=== PATIENT | female | born 1970 | race Caucasian/White ===

== ENCOUNTER 2018-06-01 17:50 | Emergency (ER) | payer BC ==
--- NOTE | 2018-06-02 08:58 | RAD ---
2 VIEWS CHEST: Date: 06/01/18 HISTORY: Cough. FINDINGS: Comparison made to previous exam from 08/20/13. Two views of the chest demonstrate the lungs to be well aerated. No evidence of active intrathoracic disease seen. No evidence of effusions, pneumonia, or pneumothorax seen. IMPRESSION: Normal 2 views chest. POS: [facility]
== END 2018-06-01 19:20 | disposition home or self-care (01) ==
LOC: SCSER 17:50
DX: J40 Bronchitis, not specified as acute or chronic (principal); J06.9 Acute upper respiratory infection, unspecified; E10.9 Type 1 diabetes mellitus without complications; E78.5 Hyperlipidemia, unspecified; I10 Essential (primary) hypertension; F41.9 Anxiety disorder, unspecified; Z79.84 Long term (current) use of oral hypoglycemic drugs; Z79.899 Other long term (current) drug therapy
CPT/HCPCS: 71046

== ENCOUNTER 2018-09-26 10:24 | Outpatient (CLI) | payer BC | END 2018-09-26 10:25 | disposition home or self-care (01) | LOC: BICMAMMO 10:24 | PROVIDERS: ATTEND Family Medicine | DX: Z12.31 Encounter for screening mammogram for malignant neoplasm of breast (principal) | CPT/HCPCS: 77063; 77067 ==

== ENCOUNTER 2018-11-13 17:51 | Emergency (ER) | payer BC ==
[~2018-11-13 17:51] MED LIST: Iopamidol 370 76% 100 ML VIAL ONE
[2018-11-13] MEDS ORDERED: Dicyclomine 20 MG TAB ONE (19:17)
[2018-11-13] MEDS ORDERED: Famotidine/PF 20 mg/2ml Vial ONE (19:17)
[2018-11-13 19:19] LABS: ALT (SGPT) 20 U/L (8-55); AST (SGOT) 14 U/L (5-34); Albumin 3.7 g/dL (3.5-5.0); Alkaline Phosphatase 144 U/L (40-150); Anion Gap 16 mmol/L (10-20); BUN (Urea Nitrogen) 8 mg/dL (7.0-18.7); Bilirubin, Total 0.2 mg/dL (0.2-1.2); Calc. Creatinine Clearance 0 mL/min (70-130); Calcium 8.8 mg/dL (7.8-10.44); Carbon Dioxide 23 mmol/L (22-29); Chloride 104 mmol/L (98-107); Estimated GFR-MDRD Greater than 90; Globulin 2.8 g/dL (2.4-3.5); Glucose 164 mg/dL (70-105); Lipase 19 U/L (8-78); Potassium 4.1 mmol/L (3.5-5.1); Protein, Total 6.5 g/dL (6.0-8.3); Sodium 139 mmol/L (136-145)
[2018-11-13 19:24] LABS: Band 2 % (5-11); Eosinophils 2 % (0-10); Hemoglobin 12.8 g/dL (12.0-16.0); Lymphocytes 16 % (21-51); MDiff Complete? YES; Mean Corpuscular HGB CONC 31.7 g/dL (32.0-36.0); Mean Corpuscular Volume 82.1 fL (78.0-98.0); Mean Platelet Volume 7.6 fL (7.4-10.4); Monocytes 6 % (0-10); Neutrophil 73 % (42-75); PLT Morphology Comment Appears Adequate; Platelet Count 255 thou/uL (130-400); RBC Distribution Width 12.2 % (11.5-14.5); Reactive Lymphocytes 1 % (0-10); White Blood Cell (WBC) Count 13.6 thou/uL (4.8-10.8)
[2018-11-13 19:59] LABS: INR-International Normal Ratio 0.9; PTT 27.6 SEC (22.9-36.1); Prothrombin Time 11.9 SEC (12.0-14.7)
[2018-11-13] MEDS ORDERED: Pantoprazole 40 MG VIAL ONE (20:11)
[2018-11-13 20:44] LABS: Bilirubin Negative (Negative); Blood, Urine Negative (Negative); Clarity Clear (Clear); Glucose, Urine (Dipstick) Negative (Negative); Leukocyte Negative (Negative); Nitrite Negative (Negative); Protein, Urine (Dipstick) Negative (Neg-Trace); Urobilinogen 0.2 mg/dL (0.2-1.0)
--- NOTE | 2018-11-13 21:02 | CT ---
CT ABDOMEN AND PELVIS WITH CONTRAST 11/13/18 HISTORY: Abdominal pain for three months. Fecal occult blood positive. TECHNIQUE: Multiple contiguous axial images were obtained in a CT of the abdomen and pelvis with contrast. Coron al reformats were performed. FINDINGS: A small hypodensity in the liver likely represents a small cyst. There is a nonobstructing calcificat ion in the left kidney measuring 7 mm in greatest dimension. The gallbladder, right kidney, adrenal g lands, spleen, and pancreas are unremarkable. No free air, free fluid, or stranding changes are seen in the abdomen or pelvis. There are a few scattered diverticula in the colon. The small bowel is unremarkable. The appendix is normal. No abdominal or pelvic lymphadenopathy are seen. The patient is status post hysterectomy. The osseous structures, visualized upper thorax, and abdominal wall soft tissues are unremarkable. IMPRESSION: 1. Nonobstructing left renal calcification. 2. Hepatic cyst. 3. Diverticulosis. POS: [facility]
== END 2018-11-13 21:24 | disposition home or self-care (01) ==
LOC: SCSER 17:51
DX: R10.13 Epigastric pain (principal); R19.5 Other fecal abnormalities; E10.9 Type 1 diabetes mellitus without complications; E78.5 Hyperlipidemia, unspecified; I10 Essential (primary) hypertension; F41.9 Anxiety disorder, unspecified; Z79.899 Other long term (current) drug therapy
CPT/HCPCS: 74177; 80053; 81003; 82274; 83605; 83690; 85025; 85610; 85730; 96361; 96374; 96375; C9113; S0028

== ENCOUNTER 2019-01-28 06:05 | Day surgery (SDC) | payer BC ==
[2019-01-27 13:09] VITALS: BMI 45.3
[2019-01-28] MEDS ORDERED: Fentanyl 100 MCG/2 ML VIAL ONE (06:30)
[2019-01-28] MEDS ORDERED: Lidocaine 2% Jelly 5 ML TUBE ONE (06:31)
[2019-01-28] MEDS ORDERED: Iothalamate Meglumine 60% 50 ML VIAL FS ONE (06:39)
[2019-01-28] MEDS ORDERED: cefTRIAXone\\ROCEPHIN 1 GM in Sodium Chloride 0.9% 100 ML IVPB SCH (08:00)
--- NOTE | 2019-01-28 09:03 | RAD ---
CHEST ONE VIEW: HISTORY: Preoperative evaluation. COMPARISON: 06/01/2018 FINDINGS: No confluent pneumonia, overt edema, or pleural effusion. IMPRESSION: No acute intrathoracic disease. Stable from prior study. POS: [facility]
[2019-01-28] MEDS ORDERED: HYDROcodone/Acetaminophen 5/325 mg Tablet ONE (09:19)
[2019-01-28] MEDS ORDERED: Morphine 2 MG/ML SYRINGE ONE (10:13)
[2019-01-28] MEDS ORDERED: B & O ONE (10:23)
[2019-01-28] MEDS ORDERED: Hyoscyamine Sulfate SL 0.125 mg Tablet SL SCH (10:45)
[2019-01-28] MEDS ORDERED: Hyoscyamine Sulfate SL 0.125 mg Tablet ONE (11:01)
[2019-01-28] MEDS ORDERED: PROPOFOL 200 MG/20 ML VIAL ONE (11:53)
[2019-01-28] MEDS ORDERED: Ketorolac Tromethamine 30 MG/ML VIAL ONE (11:53)
[2019-01-28] MEDS ORDERED: Lidocaine 1% PF 5 ML VIAL ONE (11:53)
[2019-01-28] MEDS ORDERED: Rocuronium Bromide 10 MG/ML (10ML VIAL) ONE (11:53)
[2019-01-28] MEDS ORDERED: Ondansetron PF 4 MG/2 ML Vial ONE (11:53)
[2019-01-28] MEDS ORDERED: Glycopyrrolate 0.2 MG/ML 5 ML SYRINGE ONE (11:53)
--- NOTE | 2019-01-28 14:25 | OP ---
DATE OF PROCEDURE: 01/28/2019 SERVICE: Urology. PREOPERATIVE DIAGNOSIS: Left ureteral and renal stone. POSTOPERATIVE DIAGNOSIS: Left ureteral and renal stone. PROCEDURES PERFORMED: Cystoscopy and left ureteral stent placement. INDICATION FOR PROCEDURE: Ms. Hebert is a 48-year-old white female, who presented on Sunday with left flank pain and hematuria. She was diagnosed with a left ureteral stone and renal stone both under 5 mm. Her pain has been poorly controlled and she is requiring large amounts of narcotics. Therefore, we have decided to go for a ureteral stent placement rather than attempted medical expulsive therapy. Risks and benefits of the surgery had been discussed, and she has agreed to proceed forward. DESCRIPTION OF PROCEDURE: After identification of armband and verification of consent, the patient was brought back to the operating room. She underwent general anesthesia with endotracheal intubation. She was then placed in dorsal lithotomy position, and prepped and draped in usual sterile fashion. After appropriate time-out, a lubricated 22-Chinese rigid cystoscope was introduced per urethra into the bladder and attention was turned to the left ureteral orifice. There was bloody efflux coming from this ureter. A 0.035 Sensor wire was advanced through the ureteral orifice up to the level of renal pelvis. A 6 x 26 double-J stent was advanced over the Sensor wire up to the level of renal pelvis, and the wire removed leaving a partial curl in the kidney and a good curl in the bladder. The bladder was then emptied, and the cystoscope was removed. The patient was then awakened, taken to PACU for recovery in stable condition. COMPLICATIONS: None. ESTIMATED BLOOD LOSS: Minimal. RETAINED TUBES AND DRAINS: A 6 x 26 double-J stent on the left. SPECIMENS: None. DISPOSITION: The patient will be discharged home and follow up with me in approximately a week for a definitive ureteroscopy to remove both stones. Job ID: [id number]
--- NOTE | 2019-01-28 18:17 | EKG ---
Test Reason : PREOP Blood Pressure : / mmHG Vent. Rate : 089 BPM Atrial Rate : 089 BPM P-R Int : 140 ms QRS Dur : 090 ms QT Int : 398 ms P-R-T Axes : 055 077 037 degrees QTc Int : 484 ms Normal sinus rhythm Prolonged QT Abnormal ECG No previous ECGs available Confirmed by DR. Esau ESPINOZA ([id number]) on 01/28/2019 6:16:46 PM Referred By: SANYA Confirmed By:DR. Esau ESPINOZA
== END 2019-01-28 12:15 | disposition home or self-care (01) ==
LOC: SDC 06:05
PROVIDERS: ATTEND Urology
PROC: 0T778DZ Dilation of Left Ureter with Intraluminal Device, Via Natural or Artificial Opening Endoscopic (ICD-10-PCS; principal; 2019-01-28)
DX: N20.2 Calculus of kidney with calculus of ureter (principal); E11.9 Type 2 diabetes mellitus without complications; I10 Essential (primary) hypertension; E78.5 Hyperlipidemia, unspecified; F41.9 Anxiety disorder, unspecified; Z79.4 Long term (current) use of insulin; Z79.899 Other long term (current) drug therapy; Z88.2 Allergy status to sulfonamides; Z88.8 Allergy status to other drugs, medicaments and biological substances
CPT/HCPCS: 36416; 71045; 74420; 93005; 93010; C1758; C1769; J0696; J1885; J2001; J2270; J2405; J2704; J3010; J7050; Q9961

== ENCOUNTER 2019-02-07 07:42 | Inpatient (IN) | payer BC ==
[2019-02-07] MEDS ORDERED: Midazolam HCl 2 mg/2 ml Vial ONE (09:40)
[2019-02-07] MEDS ORDERED: cefTRIAXone\\ROCEPHIN 1 GM VIAL ONE (09:40)
[2019-02-07] MEDS ORDERED: Sodium Chloride 0.9% 100 ML ONE (09:41)
[2019-02-07] MEDS ORDERED: Fentanyl 100 MCG/2 ML VIAL ONE ×3 (10:18→12:06)
[2019-02-07] MEDS ORDERED: B & O ONE (11:16)
[2019-02-07] MEDS ORDERED: Phenazopyridine HCl 97.5 MG TABLET ONE ×2 (11:55)
--- NOTE | 2019-02-07 12:17 | OP ---
DATE OF PROCEDURE: 02/07/2019 PREOPERATIVE DIAGNOSIS: Left renal stone. POSTOPERATIVE DIAGNOSIS: Left renal stone. PROCEDURES PERFORMED: Left ureteroscopy, laser lithotripsy, basket extraction of stone, and placement of a 4.8 x 24 double-J stent. INDICATION FOR PROCEDURE: Ms. Hebert is a 48-year-old white female, who initially had presented to me with severe left flank pain. She was found to have a proximal left UPJ stone. She underwent urgent stenting at that time, but had such bad pain from the stent that we ended up having to remove the stent two days later. She decided to deal with the pain from the stone itself, which she stated it was tolerable. She is now presenting for definitive management of her left stone. Risks and benefits of the surgery have been discussed and she has agreed to proceed forward. DESCRIPTION OF PROCEDURE: After identification of armband and verification of consent, the patient was brought back to the operating room, where she underwent general anesthesia with endotracheal intubation. She was then placed in dorsal lithotomy position and prepped and draped in usual sterile fashion. After appropriate time-out, a lubricated 22-Dutch rigid cystoscope was introduced per urethra into the bladder. Attention was turned toward the left ureteral orifice, which showed significant irritation from the prior stent. The ureteral orifice was cannulated with a 0.035 Sensor wire up to the level of renal pelvis. The cystoscope was then removed and a dual-lumen catheter was advanced over the Sensor wire up to the level of the proximal ureter. An Amplatz Super Stiff wire was then placed through the second lumen of the dual lumen into the renal pelvis and the dual-lumen removed. The Sensor wire was then affixed to the drapes as a safety wire and 11/13 x 36 cm ureteral access sheath was then advanced over the Super Stiff wire into the distal ureter and up to the proximal ureter. There the inner sheath were removed leaving the outer sheath and placed as a safety wire. A flexible digital ureteroscope was then passed through the ureteral access sheath into the renal pelvis, where the stone was immediately encountered at the UPJ. All the calyces were inspected. No additional stones were found. There was previously report of a 3.7 mm stone additionally in the renal collecting system on the left side, but this was not encountered. It is possible that she has already passed the stone with the larger 5 to 6 mm stone was present within the renal pelvis. Using a 365 micron laser fiber, the stone was cut in half and each fragment was removed using a 1.9-Dutch ZeroTip Nitinol basket. Upon completion, there were no stone fragments or any other stone pieces within the kidney. A repeat pyelocalicoscopy was done to ensure that there was no additional stone fragments or missed stones within any of the calyces or renal pelvis and nothing else was encountered. Pull-back ureteroscopy was employed and there was no additional stones within the ureter. The ureteroscope was then withdrawn and along with the sheath, and the cystoscope was then backloaded over the Sensor wire back into the bladder. A 4.8-Dutch x 24 cm double-J stent was advanced over the Sensor wire up to the level of renal pelvis with a string attached. The wire was removed leaving a partial curl in the kidney and a good curl in the bladder. The bladder was then drained and cystoscope removed. The string was then affixed to the patient's inner thigh with Tegaderm. B and O suppository was placed in the patient's rectum. She was then awakened and taken to PACU for recovery in stable condition. COMPLICATIONS: None. ESTIMATED BLOOD LOSS: Minimal. RETAINED TUBES AND DRAINS: A 4.8-Dutch x 24 double-J stent on the left. SPECIMEN: Stone for stone analysis. DISPOSITION: The patient will be monitored for postoperative pain. She stated that she does not want to have her stent removed early due to potential risk of complications such as ureteral stricturing. As such, she stated if her pain is intolerable, she would rather be admitted for pain control and keep the stent in, but if her pain is controlled, we will send her home with instructions to remove her stent on Sunday. Job ID: [id number]
[2019-02-07] MEDS ORDERED: Ondansetron PF 4 MG/2 ML Vial ONE (12:38)
[2019-02-07] MEDS ORDERED: Ketorolac Tromethamine 30 MG/ML VIAL ONE (12:38)
[2019-02-07] MEDS ORDERED: Glycopyrrolate 0.2 MG/ML 5 ML SYRINGE ONE (12:38)
[2019-02-07] MEDS ORDERED: Lidocaine 1% PF 5 ML VIAL ONE (12:38)
[2019-02-07] MEDS ORDERED: PROPOFOL 200 MG/20 ML VIAL ONE (12:38)
[2019-02-07] MEDS ORDERED: Rocuronium Bromide 10 MG/ML (10ML VIAL) ONE (12:38)
[2019-02-07] MEDS ORDERED: Morphine 2 MG/ML SYRINGE ONE (13:50)
[2019-02-07] MEDS ORDERED: hydrALAZINE 20 MG/ML VIAL SLOW IVP PRN (14:04)
[2019-02-07] MEDS ORDERED: Dextrose 5% in Water 1,000 ML IV PRN (14:04)
[2019-02-07] MEDS ORDERED: Morphine 2 MG/ML SYRINGE SLOW IVP PRN (14:04)
[2019-02-07] MEDS ORDERED: Dextrose 50% Abboject 50 ML SYRINGE SLOW IVP PRN (14:04)
[2019-02-07] MEDS ORDERED: Oxybutynin 5 MG TAB PO PRN (14:04)
[2019-02-07] MEDS ORDERED: Ondansetron PF 4 MG/2 ML Vial IVP PRN (14:04)
[2019-02-07] MEDS ORDERED: Bisacodyl 10 MG SUPP PR PRN (14:04)
[2019-02-07] MEDS ORDERED: diphenhydrAMINE 25 MG CAP PO PRN (14:04)
[2019-02-07] MEDS ORDERED: Morphine 4 MG/ML VIAL SLOW IVP PRN (14:04)
[2019-02-07] MEDS ORDERED: B & O PR PRN (14:06)
[2019-02-07] MEDS ORDERED: PROVENTIL INHALER 6.7 G (200 INHALATIONS) INH PRN (14:06)
[2019-02-07] MEDS: Hyoscyamine Sulfate SL 0.125 mg Tablet SL PRN (15:57)
[2019-02-07 16:05] VITALS: BMI 44.7
[2019-02-07] MEDS ORDERED: HumaLOG 300 UNITS/3 ML VIAL SC SCH (17:00)
[2019-02-07] MEDS: metFORMIN 500 MG TAB PO SCH (17:59)
[2019-02-07] MEDS: HumaLOG 300 UNITS/3 ML VIAL SC PRN (18:00)
[2019-02-07] MEDS: HYDROcodone/Acetaminophen 7.5/325 mg Tablet PO PRN ×2 (18:01→22:15)
[2019-02-07] MEDS: Furosemide 40 MG TAB PO SCH (20:05)
[2019-02-07] MEDS: Docusate 100 MG CAP PO SCH (20:06)
[2019-02-07] MEDS: Atorvastatin Calcium 20 MG TAB PO SCH (20:06)
[2019-02-07] MEDS: Ibuprofen 800 MG TAB PO SCH (20:06)
[2019-02-07] MEDS ORDERED: INSULIN DETEMIR 58 UNIT SC SCH (21:00)
[2019-02-07] MEDS: hydrOXYzine 25 MG TAB PO PRN (21:12)
[2019-02-07] MEDS: Insulin Glargine 58 UNITS in Pre-Filled Syringe 1 EACH SC SCH (22:14)
[2019-02-07] MEDS: Morphine 4 MG/ML VIAL SLOW IVP PRN (23:39)
[2019-02-08] MEDS: Hyoscyamine Sulfate SL 0.125 mg Tablet SL PRN ×2 (02:02→16:51)
[2019-02-08] MEDS: metFORMIN 500 MG TAB PO SCH ×2 (08:31→16:44)
[2019-02-08] MEDS: Furosemide 40 MG TAB PO SCH ×2 (08:32→20:47)
[2019-02-08] MEDS: Tamsulosin HCl 0.4 MG CAP PO SCH (08:32)
[2019-02-08] MEDS: Estradiol 1 MG TAB PO SCH (08:32)
[2019-02-08] MEDS: Ibuprofen 800 MG TAB PO SCH ×2 (08:33→20:47)
[2019-02-08] MEDS: Docusate 100 MG CAP PO SCH ×2 (08:33→20:48)
[2019-02-08] MEDS: Betamethasone Val 0.1% Lotion 60 ML BOT TOP SCH (08:34)
[2019-02-08] MEDS: Morphine 4 MG/ML VIAL SLOW IVP PRN ×2 (08:43→16:43)
[2019-02-08] MEDS ORDERED: Venlafaxine HCl XR 75 MG CAP PO SCH (09:00)
[2019-02-08] MEDS: HYDROcodone/Acetaminophen 7.5/325 mg Tablet PO PRN ×2 (13:03→20:46)
[2019-02-08] MEDS: hydrOXYzine 25 MG TAB PO PRN (20:47)
[2019-02-08] MEDS: Atorvastatin Calcium 20 MG TAB PO SCH (20:47)
[2019-02-08] MEDS: Insulin Glargine 58 UNITS in Pre-Filled Syringe 1 EACH SC SCH (21:26)
[2019-02-09] MEDS: HYDROcodone/Acetaminophen 7.5/325 mg Tablet PO PRN ×3 (02:22→20:38)
[2019-02-09] MEDS: Hyoscyamine Sulfate SL 0.125 mg Tablet SL PRN ×2 (02:30→14:18)
[2019-02-09] MEDS: Estradiol 1 MG TAB PO SCH (08:47)
[2019-02-09] MEDS: Furosemide 40 MG TAB PO SCH ×2 (08:48→20:30)
[2019-02-09] MEDS: metFORMIN 500 MG TAB PO SCH ×2 (08:48→15:47)
[2019-02-09] MEDS: Ibuprofen 800 MG TAB PO SCH ×2 (08:48→20:30)
[2019-02-09] MEDS: Docusate 100 MG CAP PO SCH ×2 (08:48→20:30)
[2019-02-09] MEDS: Tamsulosin HCl 0.4 MG CAP PO SCH (08:48)
[2019-02-09] MEDS: Venlafaxine HCl XR 75 MG CAP PO SCH (08:48)
[2019-02-09] MEDS: Betamethasone Val 0.1% Lotion 60 ML BOT TOP SCH (08:51)
--- NOTE | 2019-02-09 12:27 | PRG ---
DATE OF SERVICE: 02/09/2019 SUBJECTIVE: She has been tolerating the stent better last night. She did not require morphine. Continues to have hematuria. OBJECTIVE: VITAL SIGNS: T-max 97.9, blood pressure 99/66, pulse 84, respiratory rate 14, O2 saturation 93% on room air. ABDOMEN: Soft, nontender. No palpable masses. Liver and spleen not palpable. EXTREMITIES: No edema. No calf tenderness. IMPRESSION: Ms. Hebert is status post left ureteroscopy, stone extraction, stent placement. She has poor tolerance of her stent, but is improving. Hematuria persists. PLAN: Continue current management. Job ID: [id number]
--- NOTE | 2019-02-09 12:28 | PRG ---
DATE OF SERVICE: 02/08/2019 SUBJECTIVE: The patient is tolerating the pain, but does require morphine. She continues to see blood in the urine. She has requested that her antianxiety medicine be increased from 75 mg to 150 mg. OBJECTIVE: VITAL SIGNS: T-max 99, blood pressure 138/82, pulse 88, and respiratory rate 16. ABDOMEN: Soft and nontender. No palpable masses. Liver and spleen not palpable. No abdominal tenderness noted. LABORATORY DATA: Blood glucose 142. IMPRESSION: Status post left ureteroscopy, stone extraction, and stent placement with poorly tolerated stent. She is tolerating the stent well on IV pain medicine at this time. PLAN: Increase dose of Effexor XR from 75 mg to 150 mg. Continue IV antibiotic therapy. Job ID: [id number]
[2019-02-09] MEDS: HumaLOG 300 UNITS/3 ML VIAL SC PRN (15:48)
[2019-02-09] MEDS: Morphine 4 MG/ML VIAL SLOW IVP PRN (15:52)
[2019-02-09] MEDS: Insulin Glargine 58 UNITS in Pre-Filled Syringe 1 EACH SC SCH (20:29)
[2019-02-09] MEDS: Atorvastatin Calcium 20 MG TAB PO SCH (20:30)
[2019-02-10] MEDS: metFORMIN 500 MG TAB PO SCH (08:09)
[2019-02-10] MEDS: Furosemide 40 MG TAB PO SCH (08:09)
[2019-02-10] MEDS: Tamsulosin HCl 0.4 MG CAP PO SCH (08:09)
[2019-02-10] MEDS: Venlafaxine HCl XR 75 MG CAP PO SCH (08:09)
[2019-02-10] MEDS: Betamethasone Val 0.1% Lotion 60 ML BOT TOP SCH (08:09)
[2019-02-10] MEDS: Ibuprofen 800 MG TAB PO SCH (08:09)
[2019-02-10] MEDS: Estradiol 1 MG TAB PO SCH (08:09)
[2019-02-10] MEDS: Docusate 100 MG CAP PO SCH (08:10)
[2019-02-10] MEDS: HYDROcodone/Acetaminophen 7.5/325 mg Tablet PO PRN ×2 (08:10→12:47)
[2019-02-10 12:26] VITALS: BP 134/82; TEMP 98.1
--- NOTE | 2019-02-10 12:31 | PRG ---
DATE OF SERVICE: 02/10/2019 SUBJECTIVE: The patient states that she is doing okay this morning. She is still having stent pain, but this has been stable over the weekend. She denies any new complaints. Her medications have been working well. OBJECTIVE: VITAL SIGNS: Temperature 97.8, pulse 83, respirations 20, blood pressure 122/81, and saturation 93% on room air. GENERAL: No apparent distress, communicating, and alert. CARDIOVASCULAR: Regular rate and rhythm. ABDOMEN: Soft. Mildly tender to palpation. Nondistended. Positive bowel sounds. : String emanating from the urethra, which is taped in place with an OpSite on her inner thigh. EXTREMITIES: No clubbing, cyanosis, or edema. LABORATORY DATA: No labs. ASSESSMENT AND PLAN: A 48-year-old white female with uncontrolled pain secondary to the stent, currently admitted for pain control. We removed her stent today by gently pulling the string until the entire stent was removed that was the only reason she was staying in the hospital, so she will be amenable for discharge at this point. I will see her on an outpatient basis to manage her stone workup in the future. Job ID: [id number]
--- NOTE | 2019-02-11 04:11 | DIS ---
DATE OF ADMISSION: 02/07/2019 DATE OF DISCHARGE: 02/10/2019 ADMITTING DIAGNOSIS: Left renal calculi. DISCHARGE DIAGNOSIS: Renal calculi, status post laser lithotripsy. PROCEDURE PERFORMED: Cystoscopy with left-sided ureteroscopy and laser lithotripsy, basket extraction of stone, and placement of a stent. BRIEF HISTORY: Ms. Hebert is a 48-year-old white female, who initially had presented with a left-sided ureteral calculus and left renal stone. She had a stent placed urgently due to uncontrolled pain, but the stent pain was even worse than the kidney stone pain. Therefore, we removed her stent. She dealt with the kidney stone pain and then presented to the hospital for ureteroscopy and laser lithotripsy. Due to the need for a stent postoperatively, she asked to stay in the hospital postoperatively rather than go home as her pain was very poorly controlled with the stent and she does need to keep the stent in for at least a few days after the procedure. The full H and P can be found in the scanned portion of the [employer]. HOSPITAL COURSE: After surgery (please see operative note for details), the patient was admitted for pain control. She stayed on Levsin, oxybutynin, B and O suppositories, and morphine with Ingomar for pain control, which did keep her symptoms relatively well controlled. This regimen stayed persistent over the weekend for Sunday and Sunday and on Sunday morning, we removed her stent. At that point. Her pain started to subside and she was able to be discharged home. DISCHARGE CONDITION: Good. DISPOSITION: Discharged to home. DISCHARGE MEDICATIONS: Please see medical reconciliation. She will be given 5 pills of Ingomar 5/325 mg 1 to 2 tabs p.o. q.4 hours p.r.n. pain and Levsin sublingual 1 tab q.6 hours p.r.n. bladder spasms. FOLLOWUP: Her followup will be in 2 months with a renal ultrasound done prior and a completed Litholink. Job ID: [id number]
[2019-02-12 10:18] LABS: CA Oxalate Dihydrate 10 % (.); CA Oxalate Monohydrate 83 % (.); Color Tan (.)
== END 2019-02-10 13:00 | disposition home or self-care (01) | DRG 661 ==
LOC: SDC 07:42 → SURG A 16:32
PROVIDERS: ADMIT Urology; ATTEND Urology
PROC: 0TC48ZZ Extirpation of Matter from Left Kidney Pelvis, Via Natural or Artificial Opening Endoscopic (ICD-10-PCS; principal; 2019-02-07)
PROC: 0T778DZ Dilation of Left Ureter with Intraluminal Device, Via Natural or Artificial Opening Endoscopic (ICD-10-PCS; 2019-02-07)
DX: N20.0 Calculus of kidney (principal); G89.18 Other acute postprocedural pain; E11.9 Type 2 diabetes mellitus without complications; I10 Essential (primary) hypertension; E78.5 Hyperlipidemia, unspecified; F41.9 Anxiety disorder, unspecified; Z79.899 Other long term (current) drug therapy; Z79.4 Long term (current) use of insulin; Z88.2 Allergy status to sulfonamides; Z88.8 Allergy status to other drugs, medicaments and biological substances
CPT/HCPCS: 36416; 76000; 81001; 82365; 87086; 88300; C1758; C1769; J0696; J1825; J1885; J2001; J2250; J2270; J2405; J2704; J3010; J7050

== ENCOUNTER 2019-04-03 15:00 | Outpatient (CLI) | payer BC ==
--- NOTE | 2019-04-03 15:32 | ULT ---
US Renal Bilateral STANDARD History: [Ureteral stone] Comparison: CT examination January 2019 Findings: Real-time grayscale color aeration of the kidneys was performed. The right kidney measures 14 x 5.7 x 5.2 cm and the left kidney measures 12.6 x 6.4 x 6.2 cm. Promine nt bilateral: #10. No hydronephrosis. Technique artifact interpolar left kidney suggestive of a calculus and superior pole left kidney suggestive of a calculus. Urinary bladder is unremarkable. Impression: Nonobstructive left renal calculi.
== END 2019-04-03 15:01 | disposition home or self-care (01) ==
LOC: SCSULT 15:00
PROVIDERS: ATTEND Urology
DX: N20.2 Calculus of kidney with calculus of ureter (principal)
CPT/HCPCS: 76770

== ENCOUNTER 2021-08-09 09:15 | Outpatient (CLI) | payer BC ==
[2021-08-09 10:51] LABS: Hemoglobin 14.9 g/dL (12.0-15.5); Mean Corpuscular HGB CONC 34.3 g/dL (32.0-36.0); Mean Corpuscular Volume 81.8 fl (81.6-98.3); Platelet Count 311 10x3/uL (150-450); RBC Distribution Width 12.4 % (11.5-14.5); Red Blood Cell (RBC) Count 5.32 10x6/uL (3.90-5.03); White Blood Cell (WBC) Count 16.2 10x3/uL (3.5-10.5)
[2021-08-09 10:52] LABS: Bilirubin Neg (Negative); Blood, Urine Negative (Negative); Clarity Clear (Clear); Glucose, Urine (Dipstick) Normal (Negative); Ketone, Urine Negative (Negative); Leukocyte Negative (Negative); Nitrite Negative (Negative); Protein, Urine (Dipstick) Negative (Neg-Trace); Urobilinogen Normal mg/dL (Less than 2)
[2021-08-09 11:09] LABS: Anion Gap 15 mmol/L (10-20); BUN (Urea Nitrogen) 11 mg/dL (7.0-18.7); Calc. Creatinine Clearance 0 mL/min (70-130); Calcium 9.6 mg/dL (7.8-10.44); Carbon Dioxide 27 mmol/L (22-29); Chloride 97 mmol/L (98-107); Glucose 151 mg/dL (70-105); Potassium 3.5 mmol/L (3.5-5.1); Sodium 135 mmol/L (136-145)
[2021-08-09 11:15] LABS: INR-International Normal Ratio 0.9; PTT 26.2 sec (22.0-33.0); Prothrombin Time 10.3 sec (9.5-12.1)
[2021-08-09 11:29] LABS: Bacteria/HPF Rare-Few HPF (None Seen); RBC/HPF 0-3 HPF (0-3); Squamous Epithelial 0-3 HPF (0-3); WBC/HPF 0-3 HPF (0-3)
[2021-08-09 23:09] LABS: SARS-CoV-2 PCR by NAA Not Detected (NotDetected)
== END 2021-08-09 09:16 | disposition home or self-care (01) ==
LOC: LABBT 09:15
PROVIDERS: ATTEND Urology
DX: Z01.818 Encounter for other preprocedural examination (principal); N20.2 Calculus of kidney with calculus of ureter; Z20.822 Contact with and (suspected) exposure to COVID-19
CPT/HCPCS: 80048; 81001; 85027; 85610; 85730; 87086; 93005; 93010; U0003; U0005

== ENCOUNTER 2021-08-12 06:25 | Day surgery (SDC) | payer BC ==
[2021-08-11 11:31] VITALS: BMI 25.8
[2021-08-12] MEDS ORDERED: Levofloxacin 500 mg/D5W 100 ml Premix Bag ONE (07:07)
[2021-08-12] MEDS ORDERED: Fentanyl 100 MCG/2 ML VIAL ONE (07:30)
[2021-08-12] MEDS ORDERED: Ondansetron PF 4 MG/2 ML Vial ONE (07:47)
[2021-08-12] MEDS ORDERED: Ketorolac Tromethamine 30 MG/ML VIAL ONE (07:47)
[2021-08-12] MEDS ORDERED: Dexamethasone 20 MG/5 ML VIAL ONE (07:47)
[2021-08-12] MEDS ORDERED: Lidocaine 1% PF 5 ML VIAL ONE (07:47)
[2021-08-12] MEDS ORDERED: PROPOFOL 200 MG/20 ML VIAL ONE (07:47)
[2021-08-12] MEDS ORDERED: Iothalamate Meglumine 60% 50 ML VIAL FS ONE (08:20)
[2021-08-12] MEDS ORDERED: B & O 30 MG SUPP ONE (08:20)
[2021-08-12] MEDS ORDERED: HYDROcodone/Acetaminophen 5/325 mg Tablet ONE (09:55)
== END 2021-08-12 11:30 | disposition home or self-care (01) ==
LOC: SDC 06:25
PROVIDERS: ATTEND Urology
PROC: 0T778DZ Dilation of Left Ureter with Intraluminal Device, Via Natural or Artificial Opening Endoscopic (ICD-10-PCS; principal; 2021-08-12)
PROC: 0TC48ZZ Extirpation of Matter from Left Kidney Pelvis, Via Natural or Artificial Opening Endoscopic (ICD-10-PCS; principal; 2021-08-12)
DX: N20.0 Calculus of kidney (principal); E11.9 Type 2 diabetes mellitus without complications; E78.5 Hyperlipidemia, unspecified; I10 Essential (primary) hypertension; G47.33 Obstructive sleep apnea (adult) (pediatric); G47.00 Insomnia, unspecified; E66.01 Morbid (severe) obesity due to excess calories; Z68.31 Body mass index [BMI] 31.0-31.9, adult; Z88.1 Allergy status to other antibiotic agents; Z88.2 Allergy status to sulfonamides; Z88.8 Allergy status to other drugs, medicaments and biological substances; Z79.4 Long term (current) use of insulin; Z79.890 Hormone replacement therapy; Z79.899 Other long term (current) drug therapy; Z90.710 Acquired absence of both cervix and uterus; Z96.0 Presence of urogenital implants
CPT/HCPCS: 36416; 74420; 82365; 88300; C2617; J1100; J1885; J1956; J2405; J2704; J3010; Q9961

== ENCOUNTER 2023-01-31 09:49 | Outpatient (CLI) | payer BC | END 2023-01-31 09:50 | disposition home or self-care (01) | LOC: SCSRAD 09:49 | PROVIDERS: ATTEND Family Medicine | DX: J18.9 Pneumonia, unspecified organism (principal) | CPT/HCPCS: 71046 ==